=== PATIENT | male | born 1990 | race African-American/Black ===

== ENCOUNTER 2019-03-03 10:11 | Emergency (ER) | payer SELFPAY ==
--- NOTE | 2019-03-03 10:35 | ER Document Report ---
ED Medical Screen (RME) - General Chief Complaint: Testicular Lump Stated Complaint: TESTICULAR PAIN Time Seen by Provider: 03/03/19 10:34 Primary Care Provider: CELIO SALAS [Primary Care Provider] - Follow up as needed Information source: Patient Notes: Patient states he noticed a lump to the right testicle yesterday. Patient reports only mild tenderness. Patient denies any abdominal pain back pain or urinary symptoms. Patient denies any penile discharge. Patient denies any trauma to the scrotum. I have greeted and performed a rapid initial assessment of this patient. A comprehensive ED assessment and evaluation of the patient, analysis of test results and completion of the medical decision making process will be conducted by additional ED providers. - Related Data Allergies/Adverse Reactions: No Known Allergies Allergy (Unverified 12/21/11 02:50) Past Medical History - Immunizations Hx Diphtheria, Pertussis, Tetanus Vaccination: Yes Physical Exam - Vital signs Vitals: Temp Pulse Resp BP Pulse Ox 99.2 F 87 16 113/70 100 03/03/19 10:14 03/03/19 10:14 03/03/19 10:14 03/03/19 10:14 03/03/19 10:14 - General General appearance: Appears well, Alert In distress: None Course - Vital Signs Vital signs: Temp Pulse Resp BP Pulse Ox 99.2 F 87 16 113/70 100 03/03/19 10:14 03/03/19 10:14 03/03/19 10:14 03/03/19 10:14 03/03/19 10:14 Doctor's Discharge - Discharge Referrals: CELIO SALAS [Primary Care Provider] - Follow up as needed
[2019-03-03 11:27] LABS: ABSOLUTE EOSINOPHILS # (AUTO) 0.1 10^3/uL (0.0-0.6); ABSOLUTE LYMPHOCYTES (AUTO) 1.6 10^3/uL (0.5-4.7); ABSOLUTE MONOCYTES (AUTO) 1.1 10^3/uL (0.1-1.4); ABSOLUTE NEUT (AUTO) 4.7 10^3/uL (1.7-8.2); BASOPHILS % (AUTO) 0.7 % (0-2); EOSINOPHILS % (AUTO) 0.8 % (0-6); HEMOGLOBIN 14.8 g/dL (13.5-17.0); LYMPHOCYTES % (AUTO) 20.6 % (13-45); MEAN CORPUSCULAR HEMOGLOBIN 31.1 pg (27.0-33.4); MEAN CORPUSCULAR HGB CONC 33.6 g/dL (32.0-36.0); MEAN CORPUSCULAR VOLUME 93 fl (80-97); MONOCYTES % (AUTO) 15.1 % (3-13); PLATELET COUNT 204 10^3/uL (150-450); RED BLOOD COUNT 4.74 10^6/uL (4.35-5.55); RED CELL DISTRIBUTION WIDTH 14.1 % (11.5-14.0); SEGMENTED NEUTROPHILS % (AUTO) 62.8 % (42-78); TOTAL CELLS COUNTED % (AUTO) 100 %; WHITE BLOOD COUNT 7.5 10^3/uL (4.0-10.5)
[2019-03-03 11:31] LABS: APPEARANCE,URINE CLEAR; BILIRUBIN,URINE NEGATIVE (NEGATIVE); COLOR,URINE YELLOW; GLUCOSE, URINE NEGATIVE (NEGATIVE); KETONES,URINE NEGATIVE (NEGATIVE); LEUKOCYTE ESTERASE,URINE NEGATIVE (NEGATIVE); NITRITE,URINE NEGATIVE (NEGATIVE); PROTEIN,URINE NEGATIVE (NEGATIVE); URINE SPECIFIC GRAVITY 1.032; UROBILINOGEN,URINE NEGATIVE mg/dL (<2.0)
[2019-03-03 11:48] LABS: ANION GAP 8 (5-19); BLOOD UREA NITROGEN 17 mg/dL (7-20); CALCIUM 9.6 mg/dL (8.4-10.2); CARBON DIOXIDE 28 mmol/L (22-30); CHLORIDE 103 mmol/L (98-107); GLUCOSE 84 mg/dL (75-110); POTASSIUM 4.5 mmol/L (3.6-5.0)
--- NOTE | 2019-03-03 12:24 | RADIOLOGY REPORT (SQ) ---
EXAM DESCRIPTION: U/S SCROTUM W/DOPPLER COMPLETED DATE/TIME: 03/03/2019 11:58 am REASON FOR STUDY: lump to scrotum COMPARISON: None. TECHNIQUE: Static and realtime wakefield scale imaging of the scrotum and testes. Selected color Doppler and spectral images recorded to document blood flow. LIMITATIONS: None. FINDINGS: RIGHT: TESTICLE: Normal size. Normal echotexture. Normal blood flow. No mass. EPIDIDYMIS: Normal. HYDROCELE OR VARICOCELE: Small hydrocele. HERNIA OR EXTRA-TESTICULAR MASS: No. OTHER: No other significant finding. LEFT: TESTICLE: Normal size. Normal echotexture. Normal blood flow. No mass. EPIDIDYMIS: Normal. HYDROCELE OR VARICOCELE: Small hydrocele. HERNIA OR EXTRA-TESTICULAR MASS: No. OTHER: No other significant finding. IMPRESSION: Small bilateral hydroceles. Otherwise negative. TECHNICAL DOCUMENTATION: JOB ID: [id number] [employer]- All Rights Reserved Reading location - IP/workstation name: [email or web address]
[2019-03-03 12:57] LABS: CHLAM PCR NOT DETECTED (NOT DETECT)
--- NOTE | 2019-03-03 14:29 | ER Document Report ---
ED General - General Chief Complaint: Testicular Pain Stated Complaint: TESTICULAR PAIN Time Seen by Provider: 03/03/19 10:34 Primary Care Provider: CELIO SALAS [NO LOCAL MD] - Follow up as needed TRAVEL OUTSIDE OF THE [place] IN LAST 30 DAYS: No - HPI Notes: Patient is a 29-year-old male who presents the emergency department for evaluation of a scrotal lump. He noticed it yesterday behind his right testicle. He states it was when he sat down he felt something abnormal. He st ates that it really does not hurt. He denies any discharge. No sores in the area. No penile discharge. He is sexually active but has no history of STDs. Otherwise he has no fever chills, no abdominal pain, no dysuria. - Related Data Allergies/Adverse Reactions: No Known Allergies Allergy (Unverified 12/21/11 02:50) Past Medical History - General Information source: Patient - Social History Smoking Status: Current Every Day Smoker Chew tobacco use (# tins/day): No Frequency of alcohol use: Occasional Drug Abuse: None Family History: DM - Sister is type I Patient has suicidal ideation: No Patient has homicidal ideation: No - Medical History Medical History: Negative - Immunizations Hx Diphtheria, Pertussis, Tetanus Vaccination: Yes Review of Systems - Review of Systems Constitutional: No symptoms reported EENT: No symptoms reported Cardiovascular: No symptoms reported Respiratory: No symptoms reported Gastrointestinal: No symptoms reported Genitourinary: No symptoms reported Male Genitourinary: See HPI Skin: No symptoms reported Neurological/Psychological: No symptoms reported Physical Exam - Vital signs Vitals: Temp Pulse Resp BP Pulse Ox 99.2 F 87 16 113/70 100 03/03/19 10:14 03/03/19 10:14 03/03/19 10:14 03/03/19 10:14 03/03/19 10:14 - Notes Notes: Vital signs reviewed, please refer to chart. Head is normocephalic, atraumatic. Pupils equal round, reactive to light. Neck is supple without meningismus. Heart is regular rate and rhythm. Lungs are clear to auscultation bilaterally. Abdomen is soft, nontender, normoactive bowel sounds throughout. Extremities without cyanosis, clubbing. Posterior calves are nontender. Peripheral pulses are equal. Skin is warm and dry. Patient is awake, alert, neurological exam is nonfocal. Dental exam is performed with BYRON Casper, present in the room. Normal Nicholas staging. Bilateral testicles are descended. No significant tenderness to bilateral testicles, no Weathers Clapper deformity. Intact cremasteric reflex. No inguinal hernia noted. Course - Re-evaluation Re-evalutation: 03/03/19 14:27 Patient presents emergency department for evaluation. Laboratory investigation s, urinalysis, urine GC and chlamydia, as well as ultrasound were performed. No significant abnormality was noted on blood work or laboratory investigations. His ultrasound revealed bilateral small hydroceles without any other significant abnormality. Will have patient follow-up with primary care, he is to return to the ED with worsening or new concerning symptoms of any sort. - Vital Signs Vital signs: Temp Pulse Resp BP Pulse Ox 99.2 F 87 16 113/70 100 03/03/19 10:14 03/03/19 10:14 03/03/19 10:14 03/03/19 10:14 03/03/19 10:14 - Laboratory Result Diagrams: 03/03/19 11:00 03/03/19 11:00 Laboratory results interpreted by me: 03/03/19 11:00 RDW 14.1 H [place] % (Auto) 15.1 H - Diagnostic Test Radiology reviewed: Reports reviewed Radiology results interpreted by ks: 03/03/19 14:28 Scrotum Ultrasound 03/03/19 10:34 IMPRESSION: Small bilateral hydroceles. Otherwise negative. Discharge - Discharge Clinical Impression: Hydrocele of testis, Testicle lump Condition: Stable Disposition: HOME, SELF-CARE Instructions: Hydrocele ([facility]) Additional Instructions: No other significant abnormality, with the exception of hydrocele, was found on your ultrasound today. Follow-up with your doctor this week. If you develop fevers, increased swelling, pain, or any other new or concerning symptoms, return immediately to the emergency department for reevaluation. Referrals: LOCALMD,NO [NO LOCAL MD] - Follow up as needed
[2019-03-03 14:52] VITALS: BP 104/63
== END 2019-03-03 14:52 | disposition home or self-care (01) ==
LOC: ER 10:11
DX: N43.3 Hydrocele, unspecified (principal); N50.9 Disorder of male genital organs, unspecified; N50.811 Right testicular pain; F17.200 Nicotine dependence, unspecified, uncomplicated
CPT/HCPCS: 36415; 76870; 80048; 81001; 85025; 87491; 87591; 93976; 99284

== ENCOUNTER 2019-03-28 19:26 | Emergency (ER) | payer SELFPAY ==
--- NOTE | 2019-03-28 21:02 | ER Document Report ---
ED Medical Screen (RME) - General Chief Complaint: Dizziness Stated Complaint: WEAKNESS Time Seen by Provider: 03/28/19 21:00 Mode of Arrival: Ambulatory Information source: Patient Notes: 29-year-old male presented to ED for complaint of lightheadedness at work feeling like he was going to pass out. He states he got a little dizzy at work. He states he sat down for a little while. He states he talked to HR and they told him to come to the hospital. He states he is feeling a little bit better now. He states he was not sick before going to work. He is alert oriented respirations regular and unlabored. He does not smoke drink or do any drugs. He denies any medical history. I have greeted and performed a rapid initial assessment of this patient. A comprehensive ED assessment and evaluation of the patient, analysis of test results and completion of medical decision making process will be conducted by an additional ED providers. TRAVEL OUTSIDE OF THE [place] IN LAST 30 DAYS: No - Related Data Allergies/Adverse Reactions: No Known Allergies Allergy (Unverified 12/21/11 02:50) Past Medical History - Immunizations Hx Diphtheria, Pertussis, Tetanus Vaccination: Yes Physical Exam - Vital signs Vitals: Temp Pulse Resp BP Pulse Ox 98.3 F 69 18 121/58 L 97 03/28/19 19:57 03/28/19 19:57 03/28/19 19:57 03/28/19 19:57 03/28/19 19:57 Course - Vital Signs Vital signs: Temp Pulse Resp BP Pulse Ox 98.3 F 69 18 121/58 L 97 03/28/19 19:57 03/28/19 19:57 03/28/19 19:57 03/28/19 19:57 03/28/19 19:57
[2019-03-28 21:30] LABS: ABSOLUTE EOSINOPHILS # (AUTO) 0.1 10^3/uL (0.0-0.6); ABSOLUTE NEUT (AUTO) 3.5 10^3/uL (1.7-8.2); HEMOGLOBIN 13.8 g/dL (13.5-17.0); MEAN CORPUSCULAR HGB CONC 33.6 g/dL (32.0-36.0); TOTAL CELLS COUNTED % (AUTO) 100 %; WHITE BLOOD COUNT 6.1 10^3/uL (4.0-10.5)
[2019-03-28 21:35] LABS: ABSOLUTE LYMPHOCYTES (AUTO) 1.9 10^3/uL (0.5-4.7); ABSOLUTE MONOCYTES (AUTO) 0.6 10^3/uL (0.1-1.4); BASOPHILS % (AUTO) 0.6 % (0-2); EOSINOPHILS % (AUTO) 1.2 % (0-6); HEMATOCRIT 41.2 % (37.9-51.0); LYMPHOCYTES % (AUTO) 30.4 % (13-45); MEAN CORPUSCULAR HEMOGLOBIN 30.9 pg (27.0-33.4); MEAN CORPUSCULAR VOLUME 92 fl (80-97); MONOCYTES % (AUTO) 10.3 % (3-13); PLATELET COUNT 205 10^3/uL (150-450); RED BLOOD COUNT 4.47 10^6/uL (4.35-5.55); RED CELL DISTRIBUTION WIDTH 13.8 % (11.5-14.0); SEGMENTED NEUTROPHILS % (AUTO) 57.5 % (42-78)
[2019-03-28 21:39] LABS: APPEARANCE,URINE SLIGHTLY-CLOUDY; BILIRUBIN,URINE NEGATIVE (NEGATIVE); COLOR,URINE YELLOW; GLUCOSE, URINE NEGATIVE (NEGATIVE); KETONES,URINE TRACE mg/dL (NEGATIVE); PROTEIN,URINE 30 mg/dL (NEGATIVE); URINE SPECIFIC GRAVITY 1.033
[2019-03-28 22:18] LABS: ALBUMIN 4.3 g/dL (3.5-5.0); ALKALINE PHOSPHATASE 61 U/L (38-126); ANION GAP 6 (5-19); ASPARTATE AMINO TRANSFERASE 31 U/L (17-59); BILIRUBIN,DIRECT 0.1 mg/dL (0.0-0.4); BILIRUBIN,TOTAL 0.3 mg/dL (0.2-1.3); BLOOD UREA NITROGEN 20 mg/dL (7-20); CALCIUM 9.3 mg/dL (8.4-10.2); CARBON DIOXIDE 29 mmol/L (22-30); CHLORIDE 105 mmol/L (98-107); GLUCOSE 83 mg/dL (75-110); POTASSIUM 4.5 mmol/L (3.6-5.0); TOTAL PROTEIN 7.3 g/dL (6.3-8.2)
[2019-03-28 23:52] VITALS: BP 90/49
--- NOTE | 2019-03-29 19:08 | EKG REPORT ---
SEVERITY:- NORMAL ECG - SINUS RHYTHM : Confirmed by: Aria Clark MD 29-Mar-2019 19:07:25
== END 2019-03-29 00:36 | disposition left against medical advice (07) ==
LOC: ER 19:26
DX: R42 Dizziness and giddiness (principal); R53.1 Weakness
CPT/HCPCS: 36415; 80053; 81001; 82962; 84484; 85025; 87086; 93005; 93010; 99284

== ENCOUNTER 2019-04-19 00:01 | Emergency (ER) | payer SELFPAY | END 2019-04-19 02:01 | disposition left against medical advice (07) | LOC: ER 00:01 | DX: Z53.21 Procedure and treatment not carried out due to patient leaving prior to being seen by health care provider (principal) ==

== ENCOUNTER 2019-06-20 04:03 | Emergency (ER) | payer SELFPAY ==
--- NOTE | 2019-06-20 06:13 | RADIOLOGY REPORT (SQ) ---
EXAM DESCRIPTION: XR FOREARM 2 VIEWS COMPLETED DATE/TME: 06/20/2019 00:00 CLINICAL HISTORY: 29 years Male, glass in arm COMPARISON: None. Findings: 0.5 cm x 0.5 cm radiopaque foreign body. At the medial aspect of the right antecubital fossa, up to 0.6 cm deep from the skin surface. Swelling. Bones, joints, and soft tissues of the RIGHT XR FOREARM 2 VIEWS appear otherwise unremarkable. IMPRESSION: 0.5 cm x 0.5 cm radiopaque foreign body at the medial aspect of the right antecubital fossa, up to 0.6 cm deep from the skin surface.
--- NOTE | 2019-06-20 06:44 | ER Document Report ---
ED Extremity Problem, Upper - General Chief Complaint: Arm Problem Stated Complaint: SHOULDER PAIN RIGHT SIDE Time Seen by Provider: 06/20/19 06:14 Primary Care Provider: [facility] [Provider Group] - Follow up as needed Mode of Arrival: Ambulatory Information source: Patient Notes: 29-year-old male presented to ED for complaint of foreign body in his right antecubital area. He states this is new is been there about a month and he wants it removed from his arm while in the emergency room. I did explain to the patient that we do not remove foreign body that or not new injuries. There is no opening in the skin at this time. I have explained to him he will need to follow-up with a surgeon to get this removed if he likes to remove this. He states it started bothering him about a month ago but is not really sure how long it is been in his arm. He does have several scars in this area. He has good range of motion and good strength in this arm. TRAVEL OUTSIDE OF THE [place] IN LAST 30 DAYS: No - HPI Patient complains to provider of: Right, Forearm - Antecubital space, Other - Foreign body no opening in the skin Onset: Other - Not sure exactly more than a month started hurting more a month ago and was worse the last couple days. Recent injury: Possibly Quality of pain: Sharp Pain Level: 2 Context: Other - Foreign body at some time in the right antecubital Associated symptoms: None Exacerbated by: Movement Relieved by: Nothing Similar symptoms previously: Yes Recently seen / treated by doctor: Yes - Related Data Allergies/Adverse Reactions: No Known Allergies Allergy (Unverified 12/21/11 02:50) Past Medical History - General Information source: Patient - Social History Smoking Status: Current Every Day Smoker Cigarette use (# per day): Yes - Pack per day Smoking Education Provided: Yes - 4 minutes Frequency of alcohol use: Occasional Drug Abuse: None Occupation: [employer] Lives with: Alone Family History: Reviewed & Not Pertinent, DM - Sister is type I Patient has suicidal ideation: No Patient has homicidal ideation: No - Past Medical History Cardiac Medical History: Reports: None Pulmonary Medical History: Reports: None EENT Medical History: Reports: None Neurological Medical History: Reports: None Endocrine Medical History: Reports: None Renal/ Medical History: Reports: None Malignancy Medical History: Reports None GI Medical History: Reports: None Musculoskeletal Medical History: Reports None Skin Medical History: Reports None Psychiatric Medical History: Reports: None Traumatic Medical History: Reports: None Infectious Medical History: Reports: None Surgical Hx: Negative Past Surgical History: Reports: None - Immunizations Hx Diphtheria, Pertussis, Tetanus Vaccination: Yes - 2019 Review of Systems - Review of Systems Constitutional: No symptoms reported EENT: No symptoms reported Cardiovascular: No symptoms reported Respiratory: No symptoms reported Gastrointestinal: No symptoms reported Genitourinary: No symptoms reported Male Genitourinary: No symptoms reported Musculoskeletal: No symptoms reported Skin: Other - Scar tissue to the right antecubital. Patient states that he has glass in this area under the skin. There is a foreign body noted on the x-ray in the area he states that he has glass. There is no open wounds. He states is been there for a while but became more painful about a month ago. Hematologic/Lymphatic: No symptoms reported Neurological/Psychological: No symptoms reported -: Yes All other systems reviewed and negative Physical Exam - Vital signs Vitals: Temp Pulse Resp BP Pulse Ox 97.8 F 85 16 104/62 100 06/20/19 04:12 06/20/19 04:12 06/20/19 04:12 06/20/19 04:12 06/20/19 04:12 Interpretation: Normal - General General appearance: Appears well, Alert - HEENT Head: Normocephalic, Atraumatic Eyes: Normal Pupils: PERRL - Respiratory Respiratory status: No respiratory distress Chest status: Nontender Breath sounds: Normal Chest palpation: Normal - Cardiovascular Rhythm: Regular Heart sounds: Normal auscultation Murmur: No - Abdominal Inspection: Normal Distension: No distension Bowel sounds: Normal Tenderness: Nontender Organomegaly: No organomegaly - Back Back: Normal, Nontender - Extremities General upper extremity: Normal color, Normal ROM, Normal temperature General lower extremity: Normal inspection, Nontender, Normal color, Normal ROM, Normal temperature, Normal weight bearing. No: Chico's sign Elbow: Other - Scar tissue in the right forearm about the antecubital space. He states that he has glass in this area. - Neurological Neuro grossly intact: Yes Cognition: Normal Orientation: AAOx4 Edita Coma Scale Eye Opening: Spontaneous [place] Coma Scale Verbal: Oriented [place] Coma Scale Motor: Obeys Commands Edita Coma Scale Total: 15 Speech: Normal Motor strength normal: LUE, RUE, LLE, RLE Sensory: Normal - Psychological Associated symptoms: Normal affect, Normal mood - Skin Skin Temperature: Warm Skin Moisture: Dry Skin Color: Normal Course - Re-evaluation Re-evalutation: 06/20/19 07:52 X-ray does show foreign body in the right antecubital. It is subdermal. There is no open sores at this time. Patient states is been there a while but is becoming more painful when he lifts boxes. He does work at the [employer]. I have discussed with him that we do not remove something like this in the emergency room he would need to follow-up with surgery. I did given the name and [id number]. Patient was discharged home. - Vital Signs Vital signs: Temp Pulse Resp BP Pulse Ox 97.6 F 84 15 126/74 H 98 06/20/19 06:55 06/20/19 06:55 06/20/19 06:55 06/20/19 06:55 06/20/19 06:55 - Diagnostic Test Radiology reviewed: Image reviewed, Reports reviewed Discharge - Discharge Clinical Impression: FOREIGN BODY right anticubital Condition: Stable Disposition: HOME, SELF-CARE Additional Instructions: You were seen today for subcutaneous foreign body in the right forearm. There is no opening in the skin so this is not a new injury. Foreign bodies that are under the skin and no new injury are not removed in the emergency room. This would need to be removed by a surgeon or research and development director. Acetaminophen Acetaminophen may be taken for pain relief or fever control. It's much safer than aspirin, offering a wider range of "safe" dosages. It is safe during . Some brand names are Tylenol, Panadol, Datril, Anacin 3, Tempra, and Liquiprin. Acetaminophen can be repeated every four hours. The following are maximum recommended dosages: WEIGHT Dose Drops Elixir Chewable(80mg) (LBS.) drprs=droppers tsp=teaspoon 6 40 mg .4 ml (1/2) 6-11 80 mg .8 ml (full) 1/2 tsp 1 tab 12-16 120 mg 1 1/2 drprs 3/4 tsp 1 1/2 tabs 17-23 160 mg 2 drprs 1 tsp 2 tabs 24-30 240 mg 3 drprs 1 1/2 tsp 3 tabs 30-35 320 mg 2 tsp 4 tabs 36-41 360 mg 2 1/4 tsp 4 1/2 tabs 42-47 400 mg 2 1/2 tsp 5 tabs 48-53 480 mg 3 tsp 6 tabs 54-59 520 mg 3 1/4 tsp 6 1/2 tabs 60-64 560 mg 3 1/2 tsp 7 tabs 65-70 600 mg 3 3/4 tsp 7 1/2 tabs 71-76 640 mg 4 tsp 8 tabs 77-82 720 mg 4 1/2 tsp 9 tabs 83-88 800 mg 5 tsp 10 tabs >89 pounds or adults 650 mg to 900 mg Acetaminophen can be repeated every four hours. Maximum daily dose not to exceed 4000 mg. These maximum recommended dosages are slightly higher than the dosages written on the product container, but these dosages are very safe and well below the toxic dosage for acetaminophen. Ibuprofen Ibuprofen is an excellent, safe drug for pain control. In addition, it has potent antiinflammatory effects which are beneficial, especially in the treatment of injuries, arthritis, or tendonitis. It's best to take ibuprofen with food. Persons with ulcer disease or allergy to aspirin should notify their physician of this before taking ibuprofen. Take the medication exactly as prescribed. Don't take additional doses unless instructed to do so by your doctor. If you develop wheezing, shortness of breath, hives, faintness, stomach pain, vomiting, or dark black stools, return for re-evaluation at once. FOLLOW-UP CARE: If you have been referred to a physician for follow-up care, call the physicians office for an appointment as you were instructed or within the next two days. If you experience worsening or a significant change in your symptoms, notify the physician immediately or return to the Emergency Department at any time for re-evaluation. Forms: Smoking Cessation Education Referrals: [facility] [Provider Group] - Follow up as needed
[2019-06-20 06:57] VITALS: BP 126/74
== END 2019-06-20 06:55 | disposition home or self-care (01) ==
LOC: ER 04:03
DX: M79.5 Residual foreign body in soft tissue (principal); F17.210 Nicotine dependence, cigarettes, uncomplicated; Z71.6 Tobacco abuse counseling
CPT/HCPCS: 99283; 99406